=== PATIENT | female | born 1995 | race American Indian/Alaskan Native ===

== ENCOUNTER 2020-07-11 10:34 | Emergency (ER) | payer MEDICAID ==
[2020-07-11] MEDS ORDERED: METOCLOPRAMIDE 10 MG/2 ML INJ IV ONE (11:45)
[2020-07-11] MEDS ORDERED: LACTATED RINGERS 1,000 ML IV ONE (11:45)
--- NOTE | 2020-07-11 11:52 | Emergency Department Report ---
HPI - General Chief Complaint: Syncope Time Seen by Provider: 07/11/20 11:21 - HPI HPI: This is a 24-year-old -[place] female presents to the emergency department with complaint of nausea and vomiting, generalized weakness, and one episode of passing out. The patient says that the nausea and vomiting has been going on for the past week causing this generalized weakness and fatigue. The patient had the syncopal episode earlier in the day. She is currently 9 weeks . With this she is . She went into see her TELEVISION STATION MANAGER at [place] and was told to come to the emergency department for further evaluation. She denies any fever, abdominal pain, vaginal bleeding or discharge, chest pain, shortness of breath, headache, vision change, slurred speech, numbness or paresthesias. She has not taken anything for symptoms prior to presentation today. ED Past Medical Hx - Past Medical History Previous Medical History?: No - Surgical History Past Surgical History?: No - Social History Smoking Status: Current Some Day Smoker Substance Use Type: None - Medications Home Medications: Home Medications Medication Instructions Recorded Confirmed Last Taken Type Metoclopramide [Reglan] 10 mg PO TID PRN #20 tab 07/11/20 Unknown Rx Nitrofurantoin [place]/M-Cryst 100 mg PO Q12HR #14 capsule 07/11/20 Unknown Rx [Macrobid CAP] ED Review of Systems ROS: Stated complaint: 9 WEEKS PASSING OUT VERY WEAK Other details as noted in HPI Comment: All other systems reviewed and negative Constitutional: weakness. denies: chills, fever Eyes: denies: eye pain, vision change ENT: denies: ear pain, throat pain Respiratory: denies: cough, shortness of breath Cardiovascular: syncope. denies: chest pain, palpitations Gastrointestinal: nausea, vomiting. denies: abdominal pain Genitourinary: denies: dysuria, discharge Musculoskeletal: denies: back pain, arthralgia Skin: denies: rash, lesions Neurological: denies: headache, weakness Physical Exam - Physical Exam Vital Signs: Vital Signs 07/11/20 07/11/20 07/11/20 10:50 11:02 11:33 Temperature 98.5 F 97.8 F Pulse Rate 99 H 84 Respiratory 20 20 16 Rate Blood Pressure 102/76 125/57 O2 Sat by Pulse 99 97 Oximetry Physical Exam: GENERAL: The patient is well-developed well-nourished. HENT: Normocephalic. Atraumatic. Patient has moist mucous membranes. EYES: Extraocular motions are intact. NECK: Supple. Trachea is midline. CHEST/LUNGS: Clear to auscultation. There is no respiratory distress noted. HEART/CARDIOVASCULAR: Regular. There is no tachycardia. There is no murmur. ABDOMEN: Abdomen is soft, nontender. Patient has normal bowel sounds. There is no abdominal distention. SKIN: Skin is warm and dry. NEURO: The patient is awake, alert, and oriented. The patient is cooperative. The patient has no focal neurologic deficits. Normal speech. MUSCULOSKELETAL: There is no tenderness or deformity. There is no limitation range of motion. ED Course Vital Signs 07/11/20 07/11/20 07/11/20 10:50 11:02 11:33 Temperature 98.5 F 97.8 F Pulse Rate 99 H 84 Respiratory 20 20 16 Rate Blood Pressure 102/76 125/57 O2 Sat by Pulse 99 97 Oximetry ED Medical Decision Making - Lab Data Result diagrams: 07/11/20 12:06 07/11/20 12:06 Lab Results 07/11/20 07/11/20 07/11/20 Range/Units 12:06 12:06 12:06 WBC 8.4 (4.5-11.0) K/mm3 RBC 3.91 (3.65-5.03) M/mm3 Hgb 13.7 (10.1-14.3) gm/dl Hct 39.0 (30.3-42.9) % MCV 100 H (79-97) fl MCH 35 H (28-32) pg MCHC 35 H (30-34) % RDW 12.6 L (13.2-15.2) % Plt Count 187 (140-440) K/mm3 Lymph % (Auto) 16.5 (13.4-35.0) % [place] % (Auto) 4.3 (0.0-7.3) % Eos % (Auto) 0.1 (0.0-4.3) % Baso % (Auto) 0.4 (0.0-1.8) % Lymph # (Auto) 1.4 (1.2-5.4) K/mm3 [place] # (Auto) 0.4 (0.0-0.8) K/mm3 Eos # (Auto) 0.0 (0.0-0.4) K/mm3 Baso # (Auto) 0.0 (0.0-0.1) K/mm3 Seg Neutrophils % 78.7 H (40.0-70.0) % Seg Neutrophils # 6.6 (1.8-7.7) K/mm3 Sodium 133 L (137-145) mmol/L Potassium 3.4 L (3.6-5.0) mmol/L Chloride 100.2 (98-107) mmol/L Carbon Dioxide 23 (22-30) mmol/L Anion Gap 13 mmol/L BUN 7 (7-17) mg/dL Creatinine 0.5 L (0.6-1.2) mg/dL Estimated GFR > 60 ml/min BUN/Creatinine Ratio 14 % Glucose 75 (65-100) mg/dL Calcium 8.9 (8.4-10.2) mg/dL Total Bilirubin 0.40 (0.1-1.2) mg/dL AST 18 (5-40) units/L ALT 12 (7-56) units/L Alkaline Phosphatase 53 (35-129) units/L Total Protein 7.0 (6.3-8.2) g/dL Albumin 3.6 L (3.9-5) g/dL Albumin/Globulin Ratio 1.1 % TSH 1.320 (0.270-4.200) mlU/mL Urine Color (Yellow) Urine Turbidity (Clear) Urine pH (5.0-7.0) Ur Specific [place] (1.003-1.030) Urine Protein (Negative) mg/dL Urine Glucose (UA) (Negative) mg/dL Urine Ketones (Negative) mg/dL Urine Blood (Negative) Urine Nitrite (Negative) Urine Bilirubin (Negative) Urine Urobilinogen (<2.0) mg/dL Ur Leukocyte Esterase (Negative) Urine WBC (Auto) (0.0-6.0) /HPF Urine RBC (Auto) (0.0-6.0) /HPF U Epithel Cells (Auto) (0-13.0) /HPF Urine Mucus /HPF 07/11/20 Range/Units Unknown WBC (4.5-11.0) K/mm3 RBC (3.65-5.03) M/mm3 Hgb (10.1-14.3) gm/dl Hct (30.3-42.9) % MCV (79-97) fl MCH (28-32) pg MCHC (30-34) % RDW (13.2-15.2) % Plt Count (140-440) K/mm3 Lymph % (Auto) (13.4-35.0) % Childress % (Auto) (0.0-7.3) % Eos % (Auto) (0.0-4.3) % Baso % (Auto) (0.0-1.8) % Lymph # (Auto) (1.2-5.4) K/mm3 Child[place] # (Auto) (0.0-0.8) K/mm3 Eos # (Auto) (0.0-0.4) K/mm3 Baso # (Auto) (0.0-0.1) K/mm3 Seg Neutrophils % (40.0-70.0) % Seg Neutrophils # (1.8-7.7) K/mm3 Sodium (137-145) mmol/L Potassium (3.6-5.0) mmol/L Chloride (98-107) mmol/L Carbon Dioxide (22-30) mmol/L Anion Gap mmol/L BUN (7-17) mg/dL Creatinine (0.6-1.2) mg/dL Estimated GFR ml/min BUN/Creatinine Ratio % Glucose (65-100) mg/dL Calcium (8.4-10.2) mg/dL Total Bilirubin (0.1-1.2) mg/dL AST (5-40) units/L ALT (7-56) units/L Alkaline Phosphatase (35-129) units/L Total Protein (6.3-8.2) g/dL Albumin (3.9-5) g/dL Albumin/Globulin Ratio % TSH (0.270-4.200) mlU/mL Urine Color Karie (Yellow) Urine Turbidity Slightly-cloudy (Clear) Urine pH 7.0 (5.0-7.0) Ur Specific [place] 1.025 (1.003-1.030) Urine Protein 300 mg/dl (Negative) mg/dL Urine Glucose (UA) Neg (Negative) mg/dL Urine Ketones 80 (Negative) mg/dL Urine Blood Neg (Negative) Urine Nitrite Pos (Negative) Urine Bilirubin Neg (Negative) Urine Urobilinogen 4.0 (<2.0) mg/dL Ur Leukocyte Esterase Tr (Negative) Urine WBC (Auto) 9.0 H (0.0-6.0) /HPF Urine RBC (Auto) 6.0 (0.0-6.0) /HPF U Epithel Cells (Auto) 4.0 (0-13.0) /HPF Urine Mucus 3+ /HPF - Medical Decision Making This patient presents to the emergency department with a complaint of nausea and vomiting that has caused her to have some generalized weakness and fatigue. The patient is about 9 weeks . She was sent in by her TELEVISION STATION MANAGER at [place]. he patient says that she previously had an ultrasound done a few weeks ago at [place] showing a live intrauterine . She has no complaints of any vaginal bleeding, abdominal or pelvic pains. The abdomen is soft, nondistended and nontoxic in appearance. An IV was placed and the patient received a dose of IV Reglan and IV fluid resuscitation. Labs have been mostly unremarkable including CBC and metabolic panel but urinalysis shows signs of dehydration with 80 ketones in the urine as well as a very mild urinary tract infection. Patient was reevaluated multiple times over multiple hours and says she is feeling greatly improved. She was able to pass an oral challenge. I took the bedside ultrasound and was able to see an intrauterine and heart tones that measured at 162 bpm. The patient will be discharged home with a prescription for antiemetics. She has been instructed to follow-up with her primary care physician and TELE[employer]ION [employer]ATION MANAGER. Critical Care Time: No Critical care attestation.: If time is entered above; I have spent that time in minutes in the direct care of this critically ill patient, excluding procedure time. ED Disposition Clinical Impression: Dehydration Qualifiers: Weeks of gestation: 9 weeks Qualified Code(s): Z3A.09 - 9 weeks gestation of Nausea & vomiting Qualifiers: Vomiting type: unspecified Vomiting Intractability: non-intractable Qualified Code(s): R11.2 - Nausea with vomiting, unspecified UTI (urinary tract infection) Qualifiers: Urinary tract infection type: acute cystitis Hematuria presence: without hematuria Qualified Code(s): N30.00 - Acute cystitis without hematuria Disposition: TO HOME OR SELFCARE Is pt being admited?: No Condition: Stable Instructions: Urinary Tract Infection, Adult, Nausea and Vomiting, Adult, Dehydration, Adult Additional Instructions: Please follow-up with your TELEVISION STATION MANAGER in the next few days. Increase your oral rehydration. Return to the emergency department with any worsening of your symptoms, new or concerning symptoms not addressed during this current emergency department visit, or with any acute distress. Prescriptions: Nitrofurantoin [place]/M-Cryst [Macrobid CAP] 100 mg PO Q12HR #14 capsule Metoclopramide [Reglan] 10 mg PO TID PRN #20 tab PRN Reason: Nausea Referrals: PRIMARY CARE, [Primary Care Provider] - 3-5 Days [facility] [Provider Group] - 3-5 Days Time of Disposition: 14:05
[2020-07-11 12:57] LABS: Basophils % (Auto) 0.4 % (0.0-1.8); Eosinophils % (Auto) 0.1 % (0.0-4.3); Hemoglobin 13.7 gm/dl (10.1-14.3); Lymphocytes # (Auto) 1.4 K/mm3 (1.2-5.4); Lymphocytes % (Auto) 16.5 % (13.4-35.0); Mean Corpuscular HGB Conc 35 % (30-34); Mean Corpuscular Volume 100 fl (79-97); Monocytes # (Auto) 0.4 K/mm3 (0.0-0.8); Monocytes % (Auto) 4.3 % (0.0-7.3); Platelet Count 187 K/mm3 (140-440); Red Blood Count 3.91 M/mm3 (3.65-5.03); Red Cell Distribution Width 12.6 % (13.2-15.2)
[2020-07-11 13:14] LABS: Alanine Aminotransferase 12 units/L (7-56); Albumin 3.6 g/dL (3.9-5); Blood Urea Nitrogen 7 mg/dL (7-17); Calcium 8.9 mg/dL (8.4-10.2); Hemolysis Index 35
[2020-07-11 13:19] LABS: BUN/Creatinine Ratio 14
[2020-07-11 13:51] LABS: Bilirubin,Urine NEG (Negative); Blood,Urine NEG (Negative); Color,Urine Amber (Yellow); Mucus,Urine 3+ /HPF
[2020-07-11 13:52] LABS: Protein,Urine 300 mg/dL mg/dL (Negative)
[2020-07-11 14:54] VITALS: BP 112/63
--- NOTE | 2020-07-12 09:36 | Electrocardiograph Report ---
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
== END 2020-07-11 15:10 | disposition home or self-care (01) ==
LOC: ED 10:34
DX: O23.41 Unspecified infection of urinary tract in pregnancy, first trimester (principal); O21.8 Other vomiting complicating pregnancy; O26.891 Other specified pregnancy related conditions, first trimester; O99.331 Smoking (tobacco) complicating pregnancy, first trimester; E86.0 Dehydration; Z79.899 Other long term (current) drug therapy; Z3A.09 9 weeks gestation of pregnancy
CPT/HCPCS: 36415; 80053; 81001; 84443; 85025; 87086; 93005; 96361; 96374; 99283; J2765; J7120; 87076; 87186

== ENCOUNTER 2020-07-25 15:30 | Emergency (ER) | payer MEDICAID ==
--- NOTE | 2020-07-25 15:46 | Event Note ---
ED Screening Note ED Screening Note: 11 w vag bleed here for the same prior- see EMR This initial assessment/diagnostic orders/clinical plan/treatment(s) is/are subject to change based on patients health status, clinical progression and re- assessment by fellow clinical providers in the ED. Further treatment and workup at subsequent clinical providers discretion. Patient/guardian urged not to elope from the ED as their condition may be serious if not clinically assessed and managed. Initial orders include: ro miscarriage
[2020-07-25 16:08] VITALS: BP 130/99
[2020-07-25 16:08] LABS: Basophils # (Auto) 0.1 K/mm3 (0.0-0.1); Basophils % (Auto) 0.6 % (0.0-1.8); Eosinophils % (Auto) 0.2 % (0.0-4.3); Hematocrit 37.1 % (30.3-42.9); Hemoglobin 12.9 gm/dl (10.1-14.3); Lymphocytes # (Auto) 1.7 K/mm3 (1.2-5.4); Mean Corpuscular HGB Conc 35 % (30-34); Mean Corpuscular Volume 98 fl (79-97); Monocytes # (Auto) 0.4 K/mm3 (0.0-0.8); Monocytes % (Auto) 4.4 % (0.0-7.3); Platelet Count 221 K/mm3 (140-440); Red Cell Distribution Width 13.1 % (13.2-15.2)
--- NOTE | 2020-07-25 16:11 | Emergency Department Report ---
ED General Adult HPI - General Chief complaint: Vaginal Bleeding Stated complaint: 11WKS HEAVY BLEEDING/ABD PAIN Time Seen by Provider: 07/25/20 15:45 Source: patient Mode of arrival: Ambulatory Limitations: No Limitations - History of Present Illness Initial comments: 24-year-old female patient (; 11 weeks gestation) presents to the emergency department with complaints of abdominal pain and vaginal bleeding starting 2 hours ago. Patient states she had her first OB appointment earlier this morning. She had been experiencing nausea but no pain or bleeding. Patient underwent ultrasound during this appointment. After she returned home, she began experiencing lower abdominal pain and passing blood clots. She states she has soaked through 4 pads in the last hour. She did not experience bleeding with either of her previous pregnancies. She is not anticoagulated. Denies fever, chills, chest pain, shortness of breath, back pain, syncope. Denies all other complaints at this time. - Related Data Previous Rx's Medication Instructions Recorded Last Taken Type Metoclopramide [Reglan] 10 mg PO TID PRN #20 tab 07/11/20 Unknown Rx Nitrofurantoin [place]/M-Cryst 100 mg PO Q12HR #14 capsule 07/11/20 Unknown Rx [Macrobid CAP] Allergies Allergy/AdvReac Type Severity Reaction Status Date / Time No Known Allergies Allergy Verified 07/11/20 10:52 ED Review of Systems ROS: Stated complaint: 11WKS HEAVY BLEEDING/ABD PAIN Other details as noted in HPI Other: GENERAL: Negative for fever, chills, weight change, anorexia, fatigue. ENT: Negative for ear pain, difficulty hearing, sore throat, nasal congestion, epistaxis. CARDIOVASCULAR: Negative for chest pain, palpitations, lower extremity swelling. PULMONARY: Negative for cough, dyspnea, wheezing, orthopnea, cyanosis. GASTROINTESTINAL: Positive for nausea and abdominal pain. GENITOURINARY: Positive for vaginal bleeding. MUSCULOSKELETAL: Negative for joint pain, joint swelling, myalgias, back pain, neck pain. NEUROLOGICAL: Negative for headache, seizure, syncope, paresthesias, weakness. INTEGUMENTARY: Negative for erythema, rash, diaphoresis, laceration, ecchymosis. HEMATOLOGICAL: Negative for hemoptysis, hematemesis, hematochezia, hematuria. PSYCHIATRIC: Negative for hallucinations, suicidal ideation, homicidal ideation, anxiety, depression. ED Past Medical Hx - Social History Smoking Status: Current Some Day Smoker Substance Use Type: None - Medications Home Medications: Home Medications Medication Instructions Recorded Confirmed Last Taken Type Metoclopramide [Reglan] 10 mg PO TID PRN #20 tab 07/11/20 Unknown Rx Nitrofurantoin [place]/M-Cryst 100 mg PO Q12HR #14 capsule 07/11/20 Unknown Rx [Macrobid CAP] ED Physical Exam - General Limitations: No Limitations ED Course Vital Signs 07/25/20 16:06 Temperature 99 F Pulse Rate 99 H Respiratory 18 Rate Blood Pressure 130/99 [Left] O2 Sat by Pulse 100 Oximetry ED Medical Decision Making - Lab Data Result diagrams: 07/25/20 15:49 07/25/20 15:49 Critical care attestation.: If time is entered above; I have spent that time in minutes in the direct care of this critically ill patient, excluding procedure time. ED Disposition Condition: Stable
[2020-07-25 16:28] LABS: Blood Urea Nitrogen 7 mg/dL (7-17); Calcium 9.5 mg/dL (8.4-10.2); Hemolysis Index 10
[2020-07-25 16:29] LABS: BUN/Creatinine Ratio 14
[2020-07-25] MEDS ORDERED: SODIUM CHLORIDE 0.9% 1000 ML 1,000 ML IV ONE (17:40)
--- NOTE | 2020-07-25 18:56 | Ultrasound Report ---
US OB >= 14 wk fetus add gest INDICATION / CLINICAL INFORMATION: abd pain, vaginal bleeding, hcg >100K. COMPARISON: None available. FINDINGS: A single live fetus is seen in the uterus. A normal amount of amniotic fluid is present. The placenta is anterior, to the right and grade 0. heart rate is 162. Cervix length is 3.0 cm. A small daniel unt of fluid is seen in the posterior cul-de-sac IMPRESSION: Single live fetus in the uterus with heart rate of 162. A small amount of fluid is seen in the posterior cul-de-sac Signer Name: Elton Farrar MD FACR Signed: 07/25/2020 6:51 PM Workstation Name: [id number]
--- NOTE | 2020-07-25 19:52 | Emergency Department Report ---
ED Female HPI - General Chief complaint: Vaginal Bleeding Stated complaint: 11WKS HEAVY BLEEDING/ABD PAIN Time Seen by Provider: 07/25/20 15:45 Source: patient Mode of arrival: Ambulatory Limitations: No Limitations - History of Present Illness Initial comments: 24-year-old female who is 11 weeks presents emerged department co mplaining of an onset of vaginal bleeding after her visit with [employer] today for which she obtained an ultrasound. States that when she got home from [employer] she began to feel some pelvic cramping followed by some moderate vaginal bleeding having gone through 1-2 pads since the onset today however it has slowed down since being in emergency department. She reports no fever, chills, sweats but has been having some issues with nausea throughout the entire . She reports no pelvic trauma. She reports no dysuria. MD Complaint: vaginal bleeding Radiation: non-radiating Severity: mild Quality: cramping, dull Consistency: constant Improves with: none Worsens with: none Are you Now?: Yes Associated Symptoms: vaginal bleeding. denies: loss of appetite, dysuria, hematuria, shortness of breath, syncope, weakness - Related Data Sexually active: No Previous Rx's Medication Instructions Recorded Last Taken Type Metoclopramide [Reglan] 10 mg PO TID PRN #20 tab 07/11/20 Unknown Rx Nitrofurantoin [place]/M-Cryst 100 mg PO Q12HR #14 capsule 07/11/20 Unknown Rx [Macrobid CAP] Allergies Allergy/AdvReac Type Severity Reaction Status Date / Time No Known Allergies Allergy Verified 07/11/20 10:52 ED Review of Systems ROS: Stated complaint: 11WKS HEAVY BLEEDING/ABD PAIN Other details as noted in HPI Comment: All other systems reviewed and negative ED Past Medical Hx - Social History Smoking Status: Current Some Day Smoker Substance Use Type: None - Medications Home Medications: Home Medications Medication Instructions Recorded Confirmed Last Taken Type Metoclopramide [Reglan] 10 mg PO TID PRN #20 tab 07/11/20 Unknown Rx Nitrofurantoin [place]/M-Cryst 100 mg PO Q12HR #14 capsule 07/11/20 Unknown Rx [Macrobid CAP] ED Physical Exam - General Limitations: No Limitations General appearance: alert, in no apparent distress - Head Head exam: Present: atraumatic, normocephalic - Eye Eye exam: Present: normal appearance, PERRL, EOMI Pupils: Present: normal accommodation - ENT ENT exam: Present: normal exam, normal orophraynx, mucous membranes moist - Neck Neck exam: Present: normal inspection - Respiratory Respiratory exam: Present: normal lung sounds bilaterally. Absent: respiratory distress - Cardiovascular Cardiovascular Exam: Present: regular rate, normal rhythm. Absent: systolic murmur, diastolic murmur, rubs, gallop - GI/Abdominal GI/Abdominal exam: Present: soft, tenderness (Multiple pubic tenderness to the pelvic region with deep palpation. The abdomen is soft. No bruising), normal bowel sounds - Extremities Exam Extremities exam: Present: normal inspection, normal capillary refill - Back Exam Back exam: Present: normal inspection. Absent: CVA tenderness (R), CVA tenderness (L), muscle spasm - Neurological Exam Neurological exam: Present: alert, oriented X3, CN II-XII intact, normal gait - Psychiatric Psychiatric exam: Present: normal affect, normal mood - Skin Skin exam: Present: warm, dry, intact, normal color. Absent: rash ED Course Vital Signs 07/25/20 16:06 Temperature 99 F Pulse Rate 99 H Respiratory 18 Rate Blood Pressure 130/99 [Left] O2 Sat by Pulse 100 Oximetry ED Medical Decision Making - Lab Data Result diagrams: 07/25/20 15:49 07/25/20 15:49 - Radiology Data Radiology results: report reviewed Ordering Physician: ОЛЬГА PROCTOR Date of Service: 07/25/20 Procedure(s): US OB >= 14 wk fetus add gest Accession Number(s): [id number] cc: ОЛЬГА PROCTOR US OB >= 14 wk fetus add gest INDICATION / CLINICAL INFORMATION: abd pain, vaginal bleeding, hcg >100K. COMPARISON: None available. FINDINGS: A single live fetus is seen in the uterus. A normal amount of amniotic fluid is present. The placenta is anterior, to the right and grade 0. heart rate is 162. Cervix length is 3.0 cm. A small amount of fluid is seen in the posterior cul-de-sac IMPRESSION: Single live fetus in the uterus with heart rate of 162. A small amount of fluid is seen in the posterior cul-de-sac Signer Name: Elton Farrar MD FACR Signed: 07/25/2020 6:51 PM Workstation Name: [id number] Transcribed By: MS Dictated By: Elton Farrar MD Electronically Authenticated By: Elton Farrar MD Signed Date/Time: 07/25/201850 DD/ 49 TD/TT: - Medical Decision Making This patient presents with vaginal bleeding in the first trimester, differential diagnosis includes ectopic , IUP, month threatened/inevitable , along with a completed . Patient is HDS and without a history of coagulopathy or infectious symptoms. The ultrasound does reveal an single live IUP with a normal heart rate and the patient had with an elevated hCG quant Based on exam history and ED work-up patient presentation is not consistent with an ectopic , life-threatening coagulopathy, trauma, serious bacterial infection, central process or other emergency Critical care attestation.: If time is entered above; I have spent that time in minutes in the direct care of this critically ill patient, excluding procedure time. ED Disposition Clinical Impression: Vaginal bleeding affecting early Disposition: DC-01 TO HOME OR SELFCARE Is pt being admited?: No Does the pt Need Aspirin: No Condition: Stable Instructions: Vaginal Bleeding During , First Trimester, Activity Restriction During Additional Instructions: Please return to your [employer] for definitive management and follow-up. Referrals: PRIMARY CARE, [Referring] - 3-5 Days
== END 2020-07-25 20:35 | disposition home or self-care (01) ==
LOC: ED 15:30
DX: O20.8 Other hemorrhage in early pregnancy (principal); O26.891 Other specified pregnancy related conditions, first trimester; R10.2 Pelvic and perineal pain; F17.200 Nicotine dependence, unspecified, uncomplicated; Z3A.11 11 weeks gestation of pregnancy; Z79.899 Other long term (current) drug therapy
CPT/HCPCS: 36415; 76801; 76810; 80048; 84702; 85025; 86900; 86901

== ENCOUNTER 2021-10-05 07:55 | Emergency (ER) | payer MEDICAID ==
[2021-10-05 07:59] VITALS: BP 102/60
== END 2021-10-06 10:05 | disposition left against medical advice (07) ==
LOC: ED 07:55
DX: M54.9 Dorsalgia, unspecified (principal); Z53.21 Procedure and treatment not carried out due to patient leaving prior to being seen by health care provider